=== PATIENT | male | born 1950 | race Caucasian/White ===

== ENCOUNTER 2017-02-23 12:47 | Emergency (ER) | payer MEDICARE, BC ==
--- NOTE | 2017-02-23 13:04 | ERNOTE ---
Lower Extremity HPI - General Lower Extremities Pain: foot: right Time Seen by Provider: 02/23/17 12:49 Source: patient Exam Limitations: no limitations - Immun/Allergies/Home Medications Immunizations: IMMUNIZATION HX Immunizations Up to Date Yes History of Influenza Vaccine No Hx Pneumococcal Vaccination Yes Allergies/Adverse Reactions: Allergies Allergy/AdvReac Type Severity Reaction Status Date / Time No Known Allergies Allergy Verified 02/23/17 12:58 Home Medications: HOME MEDICATIONS Aspirin 325 mg PO DAILY 11/22/12 [Last Taken Unknown] Atenolol 100 mg PO DAILY 11/22/12 [Last Taken Unknown] Clopidogrel 75 mg PO DAILY 11/22/12 [Last Taken Unknown] Digoxin 0.25 mg PO DAILY 11/22/12 [Last Taken Unknown] Famotidine (Pepcid) 20 mg PO BID 11/22/12 [Last Taken Unknown] Furosemide 40 mg PO BID 11/22/12 [Last Taken Unknown] Levothyroxine Sodium 0.125 mg PO DAILY 11/22/12 [Last Taken Unknown] Lisinopril 5 mg PO DAILY 11/22/12 [Last Taken Unknown] Lovastatin 20 mg PO BID 11/22/12 [Last Taken Unknown] Metformin HCl 1,000 mg PO BID 11/22/12 [Last Taken Unknown] Novolin 70/30 30 units SQ BID 11/22/12 [Last Taken Unknown] Potassium Chloride 10 meq PO BID 11/22/12 [Last Taken Unknown] Amiodarone HCl [Cordarone] 200 mg PO BID 01/29/16 [Last Taken Unknown] oxyCODONE HCL/ACETAMINOPHEN [Percocet 5 MG/325 MG] 1 tab PO Q4H PRN #10 tab [Last Taken Unknown] - History of Present Illness Narrative: Patient was helping his friend roof two days ago. He denies any injury but was standing for about eight hours on the roof with his right foot at an angle slightly inverted. He has had severe pain in the lateral foot ever since, tried tylenol so far with no significant relieve. Date (Duration): 02/21/17 Location of Incident: neighbors Method of Injury: Reports: no apparent injury Loss of Consciousness: Reports: no loss of consciousness Modifying Factors - (Improves): Reports: other - nothing Modifying Factors - (Worsens): Reports: movement Associated Symptoms: Reports: unable to bear weight Other Injuries: Reports: none Subsequent Symptoms: Denies: sensory loss Prior Treament: Denies: recently seen, similar symptoms before Review of Systems - Review of Systems Constitutional: Absent: recent illness, fever ENT: Absent: nose congestion Respiratory: Absent: shortness of breath Cardiology: Absent: chest pain Gastrointestinal/Abdominal: Absent: nausea, abdominal pain Genitourinary: Present: no symptoms reported Musculoskeletal: Present: See HPI Skin: Absent: rash Neurological: Absent: weakness, numbness - Patient's Past Medical History Patient History - Medical: Diabetes Type 2 Insulin Dependent, GERD, Hypothyroidism Patient History - Cardiac/Respiratory: Cardiac Arrest, Coronary Heart Disease, CHF Patient History - Cancer: No Hx of Cancer Patient History - Surgical Procedures: Cardiac stent, T & A, Other, Hernia Repair Patient History - Other: None - Social History Living Situations: home Abuse History: No History of abuse Psych History: No pertinent hx Smoking Status: Former smoker Alcohol Use: none Drug Use: none - Immunizations Immunizations Up to Date: Yes Hx Pneumococcal Vaccination: Yes History of Influenza Vaccine: No Physical Exam - Physical Exam General Appearance: Present: wd/wn, alert, no apparent distress Head Exam: Present: normal inspection, no evidence of injury Respiratory: Present: no respiratory distress, normal breath sounds, no accessory muscle use, lungs clear Cardiovascular/Chest: Present: regular rate, rhythm, no murmur Extremity Exam: Present: normal except - - right paradi tender over lateral foot ( fifth metacarpal) as well as over proximal plantal surface just distal to heel, no skin breakdown, no significant swelling or erythema, sensation intact, normal ROM Neurological Exam: Present: alert, oriented, normal mood/affect, no motor/ sensory deficits Skin Exam: Present: normal color, warm/dry ED Progress - Vital Signs Patient's Vital Signs:: I have reviewed the patient's vital signs. Vital Signs: Vital Signs 02/23/17 12:50 Temperature 36.3 C L Pulse Rate 63 Respiratory 16 Rate Blood Pressure 125/84 O2 Sat by Pulse 97 Oximetry - X-Ray X-Ray #1 X-Ray: foot - no acute changes Interpretation: Reviewed by me - Progress/Reassessment Chief Complaint: Ankle Injury/ Pain Progress Note-Subjective: 02/23/17 13:44 discussed results with patient and exam is most consistent with plantal fasciitis, possible lateral tendinopathy Departure Clinical Impression: Plantar fasciitis of right foot - Departure Disposition: Home self-care Condition: Good Instructions: Plantar Fasciitis Additional Instructions: try the stretching exercises and maybe heel inserts take tylenol as needed for pain during the day and percocet to help you sleep as you are on plavix and are a heart patient aleve or advil are not a good choice for you if your symptoms don't improve over the next week follow up with Dr Fulton of the orthopedic clinic Referrals: Renny Fulton MD [Primary Care Provider] - Joseph Syed PAC [[facility]] - Prescriptions: oxyCODONE HCL/ACETAMINOPHEN [Percocet 5 MG/325 MG] 1 tab PO Q4H PRN #10 tab PRN Reason: Pain
[2017-02-23 13:49] VITALS: BP 122/58
== END 2017-02-23 13:50 | disposition home or self-care (01) ==
LOC: ER 12:47
DX: M72.2 Plantar fascial fibromatosis (principal); Z87.891 Personal history of nicotine dependence

== ENCOUNTER 2017-05-12 21:15 | Emergency (ER) | payer MEDICARE, BC ==
[2017-05-12 21:30] VITALS: BP 148/119
[2017-05-12] MEDS ORDERED: ALBUTEROL SULFATE 2.5 MG/0.5 ML VIAL.NEB IH ONE ×2 (21:50→21:56)
--- NOTE | 2017-05-12 22:01 | ERNOTE ---
<Katerine Hui - Last Filed: 05/12/17 21:51> Date of Service: 05/12/17 Time Seen by Provider: 05/12/17 21:44 Stated Complaint: SOB Presenting Symptoms:: cough, other - SOB Source: patient Exam Limitations: no limitations Immunizations: IMMUNIZATION HX Immunizations Up to Date No: unknown History of Influenza Vaccine No Hx Pneumococcal Vaccination Yes Allergies/Adverse Reactions: Allergies No Known Allergies Allergy (Verified 02/23/17 12:58) Home Medications: HOME MEDICATIONS Aspirin 325 mg PO DAILY 11/22/12 [Last Taken Unknown] Atenolol 100 mg PO DAILY 11/22/12 [Last Taken Unknown] Clopidogrel 75 mg PO DAILY 11/22/12 [Last Taken Unknown] Digoxin 0.25 mg PO DAILY 11/22/12 [Last Taken Unknown] Famotidine (Pepcid) 20 mg PO BID 11/22/12 [Last Taken Unknown] Furosemide 40 mg PO BID 11/22/12 [Last Taken Unknown] Levothyroxine Sodium 0.125 mg PO DAILY 11/22/12 [Last Taken Unknown] Lisinopril 5 mg PO DAILY 11/22/12 [Last Taken Unknown] Lovastatin 20 mg PO BID 11/22/12 [Last Taken Unknown] Metformin HCl 1,000 mg PO BID 11/22/12 [Last Taken Unknown] Novolin 70/30 30 units SQ BID 11/22/12 [Last Taken Unknown] Potassium Chloride 10 meq PO BID 11/22/12 [Last Taken Unknown] Amiodarone HCl [Cordarone] 200 mg PO BID 01/29/16 [Last Taken Unknown] oxyCODONE HCL/ACETAMINOPHEN [Percocet 5 MG/325 MG] 1 tab PO Q4H PRN #10 tab [Last Taken Unknown] Methylprednisolone [Medrol Dosepak] 4 mg PO DAILY #21 tab.ds.pk 05/12/17 [Last Taken Unknown] - History of Present Ilness Narrative: Pt. comes in with c/o SOB for four hours after he was helping his son in the basement cutting 2 x 4s and sweeping up the dust. Pt. denies any fever, rhinorrhea, recent illness, alleviating factors, aggravating factors, or edema. Pt. does states that he has a hx of CHF and cardiomyopathy and has a pace maker due to this. Timing: getting worse Severity: moderate Frequency/Possible Cause: Reports: occasional episodes Modifying Factors - Improves: Reports: nothing Modifying Factors - Worsens: Reports: nothing Associated Symptoms: Reports: cough, shortness of breath. Denies: wheezing Review of Systems - Review of Systems Constitutional: Present: no symptoms reported. Absent: fever, chills, weakness , fatigue, malaise EYE: Present: no symptoms reported ENT: Present: no symptoms reported Respiratory: Present: shortness of breath, cough, orthopnea. Absent: wheezing Cardiology: Present: no symptoms reported. Absent: chest pain, palpitations, edema Gastrointestinal/Abdominal: Present: no symptoms reported. Absent: nausea, vomiting, diarrhea Genitourinary: Present: no symptoms reported Musculoskeletal: Present: no symptoms reported. Absent: back pain, joint pain Skin: Present: no symptoms reported. Absent: rash, change in hair/nails Neurological: Present: no symptoms reported. Absent: headache, dizziness/light- headedness, numbness, tingling All Other Systems: All systems neg except as marked - Patient's Past Medical History Patient History - Medical: Diabetes Type 2 Insulin Dependent, GERD, Hypothyroidism Patient History - Cardiac/Respiratory: Cardiac Arrest, Cardiomyopathy, Coronary Heart Disease, CHF Patient History - Cancer: No Hx of Cancer Patient History - Surgical Procedures: Cardiac stent, T & A, Other, Hernia Repair Patient History - Other: None - Social History Living Situations: spouse Abuse History: No History of abuse Psych History: No pertinent hx Smoking Status: Former smoker Patient requests Smoking Cessation Consult: No Initiate information on Smoking Cessation: No Alcohol Use: none Drug Use: none - Immunizations Immunizations Up to Date: No - unknown Hx Pneumococcal Vaccination: Yes History of Influenza Vaccine: No Physical Exam - Physical Exam General Appearance: Present: wd/wn, alert, no apparent distress Head Exam: Present: normal inspection, no evidence of injury Eye Exam: Normal inspection: bilateral Ears, Nose, Throat: Present: normal ENT inspection, normal pharynx Neck: Present: normal inspection, nontender, supple, full range of motion. Absent: lymphadenopathy (R), lymphadenopathy (L) Respiratory: Present: respiratory distress, accessory muscle use - abdominal, decreased breath sounds, rhonchi - throughout Cardiovascular/Chest: Present: regular rate, rhythm, no murmur, normal peripheral pulses Back Exam: Present: normal inspection, normal range of motion, no CVA tenderness , no vertebral tenderness Extremity Exam: Present: normal inspection, non-tender, normal range of motion, no edema Neurological Exam: Present: alert, oriented, normal mood/affect, no motor/ sensory deficits Skin Exam: Present: normal color, warm/dry. Absent: pallor, skin rash ED Progress - Vital Signs Patient's Vital Signs:: I have reviewed the patient's vital signs. Vital Signs: Vital Signs 05/12/17 21:21 Temperature 36.1 C L Pulse Rate 65 Respiratory 22 H Rate Blood Pressure 148/119 O2 Sat by Pulse 95 Oximetry - Progress/Reassessment Chief Complaint: Upper Respiratory Symptoms - Transfer of Care Physician Sign Out: Katerine Hui Receiving Physician: Tevin Edge Pending Results: Labs, X-ray results Expected Disposition: Discharge Departure Clinical Impression: Bronchitis due to fumes or vapors, acute Dyspnea Qualifiers: Dyspnea type: unspecified Qualified Code(s): R06.00 - Dyspnea, unspecified - Departure Disposition: Home self-care Condition: Good Instructions: Bronchospasm, Adult, Metered Dose Inhaler (No Spacer Used) Additional Instructions: See your primary care physician if not improving, return to ER if worsening Referrals: Renny Fulton MD [Primary Care Provider] - Prescriptions: Methylprednisolone [Medrol Dosepak] 4 mg PO DAILY #21 tab.ds.pk <Tevin Edge - Last Filed: 05/14/17 07:00> Immunizations: IMMUNIZATION HX Immunizations Up to Date No: unknown History of Influenza Vaccine No Hx Pneumococcal Vaccination Yes ED Progress - Results and Orders Patient's Lab Results:: I have reviewed the patient's lab results. Results and Orders: Laboratory Tests 05/12/17 05/12/17 22:00 22:00 WBC 14.0 H Hgb 15.1 Hct 44.6 Plt Count 212 Sodium 143 H Potassium 4.1 Chloride 103 Carbon Dioxide 31.3 Anion Gap 12.8 BUN 31 H Creatinine 1.61 H D Est GFR (Non-Af Amer) 46 L D BUN/Creatinine Ratio 19.3 Random Glucose 73 Calcium 8.9 Total Bilirubin 0.3 AST 21 ALT 31 Alkaline Phosphatase 83 Troponin I 0.031 B-Natriuretic Peptide 307 H Total Protein 7.2 Albumin 3.9 - Vital Signs Vital Signs: Vital Signs 05/12/17 05/12/17 21:21 21:59 Temperature 36.1 C L Pulse Rate 65 60 Respiratory 22 H 17 Rate Blood Pressure 148/119 O2 Sat by Pulse 95 99 Oximetry - EKG EKG: unchanged from - 01/29/16, other - atrial and ventricular pacemaker, 100% paced. EKG read: Interp. by me
[2017-05-12 22:02] LABS: Hematocrit 44.6 % (42.0-52.0); Hemoglobin 15.1 gm/dL (13.5-18.0); Mean Cell Volume 98.2 fl (78-100); Mean Corpuscular Hemoglobin 33.3 pg (27-31); Mean Corpuscular Hgb Conc 33.9 g/dl (32-36); Mean Platelet Volume 9.7 fl (6.0-9.5); Neutrophil # 9.3 K/mm3 (1.3-6.0); Neutrophil % 66.6 % (42-75.0); Platelet Count 212 K/mm3 (150-450); Red Blood Count 4.54 M/mm3 (4.7-6.0); Red Cell Distribution Width 14.3 % (11.5-14.0)
[2017-05-12 22:25] LABS: Albumin * 3.9 gm/dl (3.4-5.0); Anion Gap 12.8 mmol/L (6.8-13.8); BUN/Creatinine Ratio 19.3 (9.0-21.6); Bilirubin, Total 0.3 mg/dL (0.0-1.1); Ca. Corrected For Albumin 8.7 mg/dL (8.4-10.2); Calcium * 8.9 mg/dL (7.9-10.9); Carbon Dioxide 31.3 mmol/L (24-32.6); Potassium 4.1 mmol/L (3.4-4.6); Total Protein 7.2 gm/dL (6.2-8.2); Troponin I 0.031 ng/ml (0.00-0.10)
[2017-05-12] MEDS ORDERED: DEXAMETHASONE SODIUM PHOSPHATE 10 MG/ML VIAL IM ONE (23:39)
[2017-05-12] MEDS ORDERED: ALBUTEROL SULFATE 60 PUFF INHALER IH ONE (23:41)
[2017-05-12] MEDS ORDERED: ALBUTEROL SULFATE 200 PUFF INHALER IH ONE (23:46)
[2017-05-12] MEDS ORDERED: DEXAMETHASONE SODIUM PHOSPHATE 10 MG/ML VIAL ONE (23:46)
== END 2017-05-12 23:55 | disposition home or self-care (01) ==
LOC: ER 21:15
DX: T59.891A Toxic effect of other specified gases, fumes and vapors, accidental (unintentional), initial encounter; Y92.008 Other place in unspecified non-institutional (private) residence as the place of occurrence of the external cause; J68.0 Bronchitis and pneumonitis due to chemicals, gases, fumes and vapors